=== PATIENT | female | born 1960 | race Two or more races ===

== ENCOUNTER 2020-04-16 08:03 | Emergency (ER) | payer OTHER ==
[~2020-04-16] VITALS: Ht 152.4 cm; Wt 81.6 kg
[~2020-04-16 08:03] MED LIST: CIPRO500 MG PO; CORTISPORIN EAR10 ML OT; GILTUSS LIQUID237 M1 PO; TRAM1TAB98 PO; ZANTAC300 MG PO
== END 2020-04-16 11:12 | disposition home or self-care (01) ==
LOC: ER 08:03
DX: K29.60 Other gastritis without bleeding (principal); N39.0 Urinary tract infection, site not specified

== ENCOUNTER 2020-08-15 08:22 | Emergency (ER) | payer OTHER ==
[~2020-08-15] VITALS: Ht 170.2 cm; Wt 90.7 kg
== END 2020-08-15 09:56 | disposition home or self-care (01) ==
LOC: ER 08:22
DX: M94.0 Chondrocostal junction syndrome [Tietze] (principal)

== ENCOUNTER 2021-02-03 11:22 | Emergency (ER) | payer OTHER ==
[~2021-02-03] VITALS: Ht 170.2 cm; Wt 90.7 kg
== END 2021-02-03 16:28 | disposition home or self-care (01) ==
LOC: ER 11:22
DX: S80.02XA Contusion of left knee, initial encounter (principal); W18.09XA Striking against other object with subsequent fall, initial encounter; Y93.89 Activity, other specified; Y92.89 Other specified places as the place of occurrence of the external cause; Y99.8 Other external cause status

== ENCOUNTER 2021-09-21 22:04 | Emergency (ER) | payer OTHER ==
[~2021-09-21] VITALS: Ht 170.2 cm; Wt 90.7 kg
[2021-09-21] MEDS ORDERED: LEVOTHYROXINE25 MCG (23:10)
== END 2021-09-22 10:15 | disposition home or self-care (01) ==
LOC: ER 22:04
DX: R10.30 Lower abdominal pain, unspecified (principal)